=== PATIENT | male | born 1930 | race Caucasian/White ===

== ENCOUNTER 2017-03-04 01:38 | Emergency (ER) | payer MEDICARE ==
[2017-03-04] MEDS ORDERED: LIDOCAINE HCL 2% URO-JET 5 ML JEL.PF.APP MUCOUS MEM ONE (02:10)
--- NOTE | 2017-03-04 02:48 | ER PHYSICIAN DOCUMENTATION ---
Physician Documentation [facility] Name:Al Horton Age:87 yrs Sex:Male :1930 Arrival Date:03/04/2017 Time:01:38 Bed4 Private MD:Ky Clark; Missy Torres ED, Tom Disposition: 03/04 02:25 Chart complete. tl1 Disposition: 03/04/17 02:03 Discharged to Home/Self Care. Impression: Urinary Retention. - Condition is Good. - Discharge Instructions: URINARY RETENTION, Male. - Medical Reconciliation form form. - Follow up: Private Physician; When: 4- 6 days; Reason: Recheck today's complaints, Continuance of care. - Problem is new. - Symptoms have improved. - Notes: CALL FIRST THING MONDAY TO MAKE AN APPOINTMENT WITH YOUR UROLOGIST, DR DAVIES IN [place] FOR SOMETIME EARLY NEXT WEEK. HPI: 01:40 This 87 yrs old Male presents to ER with complaints of Urinary Retention. tl1 01:40 The patient presents with urinary symptoms, retention. Onset: The symptom(s)/episode tl1 began/occurred gradually, 9 hour(s) ago. Severity of symptoms: At their worst the symptoms were moderate, in the emergency department the symptoms are unchanged. The patient has experienced similar episodes in the past, several times. The patient has been recently seen by a physician: Hospitalized for 2 days at [facility] FOR pneumonia and d/c'd to home yesterday. He was OK today, but this evening felt the urge to urinate several times but was unable to. Over the last hour or so he has had progressive suprapubic distension and discomfort as well as a small amount of urinary incontinence. Has had some diarrhea since being on the antibiotics, but no constipation and no fecal incontinence or difficulty having a BM.. . Denies f/c/s or UTI symptoms. No back or flank pain.. Historical: - Allergies: PENICILLINS; SHELLFISH; Levaquin; - Home Meds: 1. Tylenol 325 mg Oral Tab 2 tabs every 6 hours as needed 2. Iron CR Oral 3. tamsulosin 0.4 mg Oral Cp24 1 cap once daily 1/2 hour following the same meal each day 4. aspirin 325 mg Oral Tab 1 tab once daily 5. Diovan 160 mg Oral Tab 1 tab once daily 6. omperazole 7. Lasix 20 mg Oral Tab 1 tab once daily 8. amlodipine 2.5 mg Oral Tab 1 tab once daily 9. pravastatin 40 mg Oral Tab 1 tab once daily - PMHx: renal insuffen; HYPERTENSION; COPD; COPD Exacerbation (February 04, 2014); - Ebola Screening: : Patient negative for fever greater than or equal to 101.5 degrees Fahrenheit, and additional compatible Ebola Virus Disease symptoms. Patient denies exposure to infectious person. Patient denies travel to an Ebola-affected area in the 21 days before illness onset. No symptoms or risks identified at this time. . - Immunization history: Pneumococcal vaccine is up to date, Flu Vaccine < 1 year. - Social history: Smoking status: unknown if patient ever smoked tobacco. Patient/guardian denies using alcohol, street drugs, IV drugs, marijuana. ROS: 01:54 : Positive for difficulty urinating. tl1 01:54 All other systems are negative. Exam: 01:57 Constitutional: This is a well developed, well nourished patient who is awake, alert, tl1 and in no acute distress. Head/Face: Normocephalic, atraumatic. Cardiovascular: Regular rate and rhythm with a normal S1 and S2. No gallops, murmurs, or rubs. Normal PMI, no JVD. No pulse deficits. 01:57 Respiratory: Lungs have equal breath sounds bilaterally, clear to auscultation and tl1 percussion. No rales, rhonchi or wheezes noted. No increased work of breathing, no retractions or nasal flaring. 01:57 Abdomen/GI: Inspection: distension, that is moderate, in the suprapubic area. 01:57 : CVA tenderness, is absent, Bladder: distension, that is moderate, tenderness, that is moderate. 01:57 Skin: Exam negative for acute changes, rash. 01:57 Neuro: Exam negative for acute changes. Vital Signs: 01:54 BP 131 / 75; Pulse 85; Resp 18; Temp 97.9(O); Pulse Ox 91% on R/A; sc1 Procedures: 02:01 Tompkins catheter by JAY Contreras. tl1 MDM: 01:49 Patient medically screened. tl1 01:57 Med List attached sc1 02:21 Differential diagnosis: urinary retention. Data reviewed: vital signs, nurses notes, tl1 lab test result(s), urinalysis, Dip negative., and as a result, I will discharge patient. Test interpretation: by ED physician or midlevel provider:. Counseling: I had a detailed discussion with the patient and/or guardian regarding: the historical points, exam findings, and any diagnostic results supporting the discharge/admit diagnosis, lab results, the need for outpatient follow up, a urologist. Response to treatment: the patient's symptoms have markedly improved after treatment, and as a result, I will discharge patient. ED course: Tompkins catheter placed without difficulty. 1875 ml of dark urine drained initially with resolution of his suprapubic distension and discomfort.. 02:27 Patient medically screened. tl1 Dispensed Medications: 02:20 Drug: Urojet - Lidocaine Viscous Gel 2 % 1 application; Route: Mucous Membrane; sc1 Point of Care Testing: Urine Dip: 02:18 pH: 5.0; ; Specific [place]: 1.010; Ketones: Negative; Glucose: Negative; Protein: sc1 Negative; Leukocytes: Negative; Nitrite: Negative ; Blood: Negative; Bilirubin: Negative ; Urobilinogen: Normal Signatures: Diane Lara RN RN sc1 Minh Puente MD MD tl1
--- NOTE | 2017-03-04 02:48 | ER NURSING DOCUMENTATION ---
Nurse's Notes [facility] Name:Al Horton Age:87 yrs Sex:Male :1930 Arrival Date:03/04/2017 Time:01:38 Bed4 Private MD:Ky Clark; Missy Torres Diagnosis:Urinary Retention Presentation: 03/04 01:48 Presenting complaint: Patient states: Pt. states he is having trouble urinating. sc1 Transition of care: Home. Notified ED Physician of patient's arrival and CC Dr. Puente notified. Care prior to arrival: IV initiated. gauge and site 20 left AC IV Fluids given by EMS NS 1000 ml. 01:48 Acuity: SHER 3 sc1 01:48 Method Of Arrival: EMS: 400 sc1 Triage Assessment: 01:53 General: Appears in no apparent distress, comfortable, well developed, well nourished, sc1 well groomed, Behavior is cooperative, pleasant. Pain: Complains of pain in suprapubic area Quality of pain is described as dull. Historical: - Allergies: PENICILLINS; SHELLFISH; Levaquin; - Home Meds: 1. Tylenol 325 mg Oral Tab 2 tabs every 6 hours as needed 2. Iron CR Oral 3. tamsulosin 0.4 mg Oral Cp24 1 cap once daily 1/2 hour following the same meal each day 4. aspirin 325 mg Oral Tab 1 tab once daily 5. Diovan 160 mg Oral Tab 1 tab once daily 6. omperazole 7. Lasix 20 mg Oral Tab 1 tab once daily 8. amlodipine 2.5 mg Oral Tab 1 tab once daily 9. pravastatin 40 mg Oral Tab 1 tab once daily - PMHx: renal insuffen; HYPERTENSION; COPD; COPD Exacerbation (February 04, 2014); - Ebola Screening: : Patient negative for fever greater than or equal to 101.5 degrees Fahrenheit, and additional compatible Ebola Virus Disease symptoms. Patient denies exposure to infectious person. Patient denies travel to an Ebola-affected area in the 21 days before illness onset. No symptoms or risks identified at this time. . - Immunization history: Pneumococcal vaccine is up to date, Flu Vaccine < 1 year. - Social history: Smoking status: unknown if patient ever smoked tobacco. Patient/guardian denies using alcohol, street drugs, IV drugs, marijuana. Screenin:55 Infectious Disease Risk None. Abuse screen: Denies threats or abuse. Nutritional in1 screening: No deficits noted. Vital Signs: 01:54 BP 131 / 75; Pulse 85; Resp 18; Temp 97.9(O); Pulse Ox 91% on R/A; in1 ED Course: 01:39 Patient arrived in ED. ma1 01:39 Missy Torres DO is Private Physician. ma1 01:39 Ky Clark DO is Private Physician. ut1 01:48 Diane Lara, JAY is Primary Nurse. sc1 01:49 Minh Puente MD is Attending Physician. 1 01:50 Triage completed. in1 01:55 Notified ED Physician of patient's arrival and chief complaint. Dr. Puetne notified. in1 Allergy Band Placed Arm band placed on Bed in low position Call Light in Reach HOB Elevated Side rails up x2. 01:57 Med List attached [facility] 02:19 Eric cath inserted 16 Fr. returned bren urine. Patient tolerated well. [facility] 02:20 Eric catheter bag changed to a leg bag for discharge home. in1 02:47 Valuables Remains with patient. in1 Administered Medications: 02:20 Drug: Urojet - Lidocaine Viscous Gel 2 % 1 application; Route: Mucous Membrane; [facility] Point of Care Testing: Urine Dip: 02:18 pH: 5.0; ; Specific [place]: 1.010; Ketones: Negative; Glucose: Negative; Protein: sc1 Negative; Leukocytes: Negative; Nitrite: Negative ; Blood: Negative; Bilirubin: Negative ; Urobilinogen: Normal Output: 02:21 Urine: 1875ml (Eric); Total: 1875ml. [facility] Outcome: 02:03 Discharge ordered by . 1 02:46 Discharged to home via wheelchair. in1 02:46 Condition: stable 02:46 Discharge instructions given to patient, family, Instructed on discharge instructions, follow up and referral plans. Eric care. Demonstrated understanding of instructions. 02:47 Patient left the ED. [facility] [id number] 12:40 Discharge F/U Call: Spoke with: patient. Are you having any pain? no. Have you made a lc f/u appointment? yes Overall Care on a scale of 1-10 with 10 being the best care, you rate our care as: Other comments: ERIC DRAINING WELL, NO QUESTIONS Signatures: Yue Lopez, JAY RN lc Diane Lara RN RN sc1 Minh Puente MD MD tl1 Ijeoma Small ut1
== END 2017-03-04 02:48 | disposition home or self-care (01) ==
LOC: ER 01:38
DX: R33.9 Retention of urine, unspecified (principal); N32.89 Other specified disorders of bladder; R10.30 Lower abdominal pain, unspecified; Z46.6 Encounter for fitting and adjustment of urinary device; R19.7 Diarrhea, unspecified; I10 Essential (primary) hypertension; J44.9 Chronic obstructive pulmonary disease, unspecified; Z79.82 Long term (current) use of aspirin; Z79.899 Other long term (current) drug therapy; Z74.3 Need for continuous supervision
CPT/HCPCS: 51702; 99284

== ENCOUNTER 2017-04-26 13:04 | Inpatient (IN) | payer MEDICARE ==
[2017-04-26] MEDS ORDERED: METHYLPREDNISOLONE SOD 125 MG/2 ML VIAL ONE (13:30)
[2017-04-26] MEDS ORDERED: IPRATROPIUM/ALBUTEROL 0.5/3 MG 3 ML AMPUL.NEB INHALATION ONE (13:30)
[2017-04-26 13:31] LABS: BASOPHIL# 0.1 X 10^3uL (0.0-0.1); BASOPHILS 1.2 % (0.0-2.0); EOSINOPHILS 8.6 % (0.0-6.0); EOSINOPHILS# 0.8 X 10^3uL (0.0-0.4); HEMATOCRIT 29.7 % (42.0-54.0); HEMOGLOBIN 9.9 g/dL (14.0-18.0); LYMPHOCYTES 11.8 % (20.0-40.0); LYMPHOCYTES# 1.1 X 10^3uL (0.8-3.8); MEAN CELL VOLUME 88.5 fL (80.0-100.0); MEAN CORPUS. HGB CONCENTRATION 33.2 g/dL (32.0-36.0); MEAN CORPUSCULAR HEMOGLOBIN 29.4 pg (29.0-35.0); MEAN PLATELET VOLUME 9.5 fL (7.4-10.4); MONOCYTES 10.8 % (2.0-10.0); NEUTROPHILS 67.6 % (54.0-75.0); NEUTROPHILS# 6.3 X 10^3uL (2.6-6.7); PLATELET COUNT 219 X 10^3uL (130-440); RED BLOOD COUNT 3.36 X 10^6uL (4.20-6.10); RED CELL DISTRIBUTION WIDTH 13.3 % (11.5-14.5); WHITE BLOOD COUNT 9.3 X 10^3uL (3.9-10.7)
[2017-04-26 13:39] LABS: BLOOD UREA NITROGEN 41 mg/dL (9-20); CALCIUM 9.2 mg/dL (8.4-10.2); CHLORIDE 104 mmol/L (98-107); GLUCOSE 110 mg/dL (70-100); MAGNESIUM 1.8 mg/dL (1.6-2.3); POTASSIUM 3.6 mmol/L (3.5-5.1); SODIUM 143 mmol/L (137-145)
[2017-04-26 13:55] LABS: TROPONIN I 0.054 ng/mL (0.00-0.034)
[2017-04-26] MEDS ORDERED: LEVALBUTEROL 1.25 MG/3 ML VIAL.NEB INHALATION ONE (14:23)
[2017-04-26] MEDS ORDERED: HOME MEDICATION LIST NEEDED 1 EA EACH MC ONE (14:33)
[2017-04-26] MEDS ORDERED: MORPHINE SULFATE 4 MG/ML SYR IV PRN (14:42)
[2017-04-26] MEDS ORDERED: O2 HUMIDIFIER 650 ML BOTTLE INHALATION ONE (15:11)
--- NOTE | 2017-04-26 15:30 | ER NURSING DOCUMENTATION ---
Nurse's Notes [facility] Name:Al Horton Age:87 yrs Sex:Male :1930 Arrival Date:04/26/2017 Time:13:04 Bed4 Private MD:Missy Torres Diagnosis:COPD Exacerbation;Hypoxia;Gout Presentation: 04/26 13:10 Acuity: SHER 2 13:22 Presenting complaint: Patient states: Pt was seen in the clinic for an appt today, Dr. darrell Lehman noticed the patient was having labored breathing and chest tightness. Pt sent up from EP. Transition of care: EP. 13:22 Method Of Arrival: Wheelchair Triage Assessment: 13:23 General: Appears in no apparent distress, Behavior is cooperative. Pain: Denies pain. rh EENT: Oral mucosa is dry. Neuro: Level of Consciousness is awake, alert, obeys commands, Oriented to person, place, time, event. Cardiovascular: Capillary refill < 3 seconds Reports shortness of breath Chest Tightness. Respiratory: Airway is patent Respiratory effort is even, labored, Breath sounds are diminished Reports shortness of breath Onset: The symptoms/episode began/occurred gradually, the patient has moderate shortness of breath. GI: Abdomen is non- distended Denies diarrhea, nausea, vomiting. : Derm: Skin is intact, is healthy with good turgor, Skin is pink, warm & dry. Musculoskeletal: Circulation, motion, and sensation intact Range of motion intact in all extremities. Historical: - Allergies: PENICILLINS; SHELLFISH; Levaquin; - Home Meds: 1. Janumet 50-500 mg oral tab 1 tab 2 times per day 2. omeprazole 20 mg oral cpDR 2 caps once daily 3. hydrochlorothiazide 25 mg oral tab 1 tab once daily 4. pravastatin 40 mg oral tab 1 tab once daily 5. lisinopril 40 mg oral tab 1 tab once daily 6. aspirin 81 mg oral tab 1 tab once daily 7. fluticasone Propionate 50MCG 8. Proventil Inhl 9. Omeprazole Oral 10. Acetaminophen Oral 11. Trazodone Oral 12. pantoprazole oral 13. tamsulosin oral 14. proair 15. Flovent Inhl 16. Lasix Oral 17. pravastatin oral - PMHx: COPD; COPD Exacerbation (February 04, 2014); HYPERTENSION; renal insufficiency; Urinary Retention (March 04, 2017); GERD; BPH; hyperkalemia; HIGH CHOLESTEROL; ANEMIA; ATRIAL FIB; CHF; GOUT; edema; - PSHx: Cholecysectomy; Appendectomy; HERNIA REPAIR; - Tetanus: < 10 years. - Ebola Screening: : Patient negative for fever greater than or equal to 101.5 degrees Fahrenheit, and additional compatible Ebola Virus Disease symptoms. - Social history: Smoking status: Patient states former smoker of tobacco. Smoking status: Patient states former smoker of tobacco. - Immunization history: Pneumococcal vaccine is up to date, Flu Vaccine unknown. Screenin:28 Infectious Disease Risk None. Abuse screen: Denies threats or abuse. Denies injuries rh from another. Nutritional screening: No deficits noted. Assessment: 13:28 See Triage Assessment done by same RN. rh 13:42 Reassessment: Pt's two daughters arrived and are in the room. . rh Vital Signs: 13:20 BP 121 / 61; Pulse 102; Resp 22; Temp 99.1(O); Pulse Ox 85% on R/A; Pain 0/10; rh 13:59 BP 140 / 81; Pulse 110; Resp 22; Pulse Ox 90% on 3.5 lpm NC; rh 14:32 Pulse 109; Resp 10; Pulse Ox 93% on 3 lpm NC; kr 15:29 BP 145 / 61; Pulse 99; Resp 20; Pulse Ox 92% on 3 lpm NC; rh ED Course: 13:08 Patient arrived in ED. jl 13:08 Missy Torres DO is Private Physician. jl 13:10 Triage completed. rh 13:10 Oxygen Oxygen administration via nasal cannula @ 3L/min. rh 13:11 Malvin Paul MD is Attending Physician. jm 13:12 EKG done. (by ED staff). Reviewed by Malvin Paul MD. tg 13:20 Inserted peripheral IV: 18 gauge saline lock: in right antecubital area and blood nf collected. 13:20 monitoring engineer on. Pulse ox on. NIBP on. rh 13:27 Notified ED Physician of patient's arrival and chief complaint. Dr. Paul notified. rh 13:28 Valuables Remains with patient Patient has correct armband on for positive rh identification. Placed in gown. Bed in low position. Call light in reach. Side rails up X 1. 13:33 Hofsess, Janny is Primary Nurse. rh 13:[address] Palu of Troponin of 0.054. Dr. Paul will consult Dr. Lehman. lpr 14:22 Subsequent Med Neb Given as ordered Patient tolerated procedure well without adverse kr effect. 14:47 Sanjana Lehman MD is Admitting Physician. 15:27 EKG attached tg Administered Medications: 13:30 Drug: Solu-MEDROL 125 mg; Route: IVP; Site: right antecubital; rh 13:43 Follow up: Response: Wheezing diminished rh 13:30 Drug: DuoNeb (Albuterol 2.5 mg, Atrovent 0.5 mg); 3 ml; Route: Nebulizer; rh 15:30 Follow up: Response: Wheezing diminished rh 14:15 Drug: Xopenex 1.25 mg; Route: Inhalation; kr 14:32 Follow up: Pulse 109 bpm; Resp 10 bpm; Pulse Ox 93% 3 lpm Nasal Cannula kr Outcome: 14:47 Decision to Admit by Provider. 15:29 Admitted to Med/surg accompanied by nurse, family with patient, via stretcher, with oxygen, with chart. 15:29 Condition: stable 15:29 Discharge Assessment: Patient awake, alert and oriented x 3. No cognitive and/or functional deficits noted. Patient verbalized understanding of disposition instructions. 15:29 Discharge instructions given to patient, family, Instructed on need to admit 15:30 Patient left the ED. Signatures: Justin Shaffer RN RN Tati Chou RN RN nf Meyer, John, MD MD jm Roberts, Leslie, RN RN lpr Hofsess, Rachel Mare Montague Jeff jl
--- NOTE | 2017-04-26 15:31 | ER PHYSICIAN DOCUMENTATION ---
Physician Documentation [facility] Name:Al Horton Age:87 yrs Sex:Male :1930 Arrival Date:04/26/2017 Time:13:04 Bed4 Private MD:Missy Torres ED, John Disposition: 04/26/17 14:47 Admit ordered for Sanjana Lehman. Preliminary diagnosis are COPD Exacerbation, Hypoxia, Gout. - Bed requested for Medical/Surgical. - Condition is Good. - Problem is new. - Symptoms have improved. 23 HR OBS Yes HPI: 04/26 14:17 This 87 yrs old Male presents to ER via Wheelchair with complaints of jm Shortness Of Breath. 14:17 The patient has shortness of breath at rest. Onset: The symptom(s)/episode jm began/occurred yesterday, and became worse today. Duration: The symptoms are continuous. The patient's shortness of breath is aggravated by nothing. Associated signs and symptoms: Pertinent negatives: chest pain, non-productive cough, diaphoresis, nausea. Severity of symptoms: in the emergency department the symptoms are unchanged. The patient has not experienced similar symptoms in the past. The patient has not recently seen a physician. 87 yo M who was being seen by Dr. Lehman for gout and was in the upper 70's on RA, so pt was refereed to the ER for w/u. Pt w hx of COPD. . Historical: - Allergies: PENICILLINS; SHELLFISH; Levaquin; - Home Meds: 1. Janumet 50-500 mg oral tab 1 tab 2 times per day 2. omeprazole 20 mg oral cpDR 2 caps once daily 3. hydrochlorothiazide 25 mg oral tab 1 tab once daily 4. pravastatin 40 mg oral tab 1 tab once daily 5. lisinopril 40 mg oral tab 1 tab once daily 6. aspirin 81 mg oral tab 1 tab once daily 7. fluticasone Propionate 50MCG 8. Proventil Inhl 9. Omeprazole Oral 10. Acetaminophen Oral 11. Trazodone Oral 12. pantoprazole oral 13. tamsulosin oral 14. proair 15. Flovent Inhl 16. Lasix Oral 17. pravastatin oral - PMHx: COPD; COPD Exacerbation (February 04, 2014); HYPERTENSION; renal insufficiency; Urinary Retention (March 04, 2017); GERD; BPH; hyperkalemia; HIGH CHOLESTEROL; ANEMIA; ATRIAL FIB; CHF; GOUT; edema; - PSHx: Cholecysectomy; Appendectomy; HERNIA REPAIR; - Tetanus: < 10 years. - Ebola Screening: : Patient negative for fever greater than or equal to 101.5 degrees Fahrenheit, and additional compatible Ebola Virus Disease symptoms. - Social history: Smoking status: Patient states former smoker of tobacco. Smoking status: Patient states former smoker of tobacco. - Immunization history: Pneumococcal vaccine is up to date, Flu Vaccine unknown. ROS: 14:19 Constitutional: Negative for fatigue, fever. jm 14:19 ENT: Negative for rhinorrhea, sinus congestion, sinus pain, sore throat. 14:19 Neck: Negative for swelling, tenderness. 14:19 Cardiovascular: Positive for edema, Negative for chest pain. 14:19 Respiratory: Positive for dyspnea on exertion, shortness of breath. 14:19 Abdomen/GI: Negative for abdominal pain, nausea, vomiting. 14:19 MS/extremity: Positive for rash, swelling, tenderness, warmth. 14:19 All other systems are negative. Exam: 14:19 Constitutional: The patient appears alert, awake. jm 14:19 Eyes: Periorbital structures: appear normal, Extraocular movements: intact throughout. 14:19 ENT: Mouth: is normal, Voice: is normal. 14:19 Cardiovascular: Rate: tachycardic, Rhythm: irregularly irregular. 14:19 Respiratory: the patient does not display signs of respiratory distress, Respirations: normal, Breath sounds: wheezing, that is mild, is scattered, decreased breath sounds, that are severe, are scattered. 14:19 Abdomen/GI: Bowel sounds: normal, Palpation: abdomen is soft and non-tender. 14:19 Musculoskeletal/extremity: Pulses: are normal with no appreciated deficits, Sensation intact. 14:19 Skin: rash a moderate rash is noted, gout like rash on L foot. . 14:19 Neuro: Mentation: is normal, Memory: is normal. 14:19 Psych: Behavior/mood is pleasant, cooperative, Affect is calm. Vital Signs: 13:20 BP 121 / 61; Pulse 102; Resp 22; Temp 99.1(O); Pulse Ox 85% on R/A; Pain 0/10; rh 13:59 BP 140 / 81; Pulse 110; Resp 22; Pulse Ox 90% on 3.5 lpm NC; rh 14:32 Pulse 109; Resp 10; Pulse Ox 93% on 3 lpm NC; kr 15:29 BP 145 / 61; Pulse 99; Resp 20; Pulse Ox 92% on 3 lpm NC; rh MDM: 13:11 Patient medically screened. jm 14:22 Differential diagnosis: Anemia Chronic Obstructive Pulmonary Disease. Antibiotic jm administration: Data reviewed: vital signs, nurses notes, old medical records, lab test result(s), EKG, radiologic studies, and as a result, I will admit patient. Data interpreted: Pulse oximetry: Interpretation: hypoxia. Test interpretation: by ED physician or midlevel provider: plain radiologic studies, ECG. Counseling: I had a detailed discussion with the patient and/or guardian regarding: the historical points, exam findings, and any diagnostic results supporting the discharge/admit diagnosis, lab results, radiology results, the need for further work-up and treatment in the hospital. ECG:. Medication response: The patient's symptoms have improved, Physician consultation: Sanjana Lehman MD regarding admission, and will see patient immediately, later today. 14:44 ED course: Pt here for SOB, found to have COPD exacerbation. Pt will need admission for jm this. Pt opened up a bit w albuterol, but will need continued treatment. . 15:27 EKG attached tg 04/26 13:39 Order name: CBC AUTO DIF, MDIF/RMOR IF IND [facility] 04/26 13:56 Order name: BASIC METABOLIC PANEL [facility] 04/26 13:56 Order name: MAGNESIUM [facility] 04/26 13:56 Order name: BNP,NT-PRO [facility] 04/26 13:56 Order name: TROPONIN I [facility] 04/26 17:36 Order name: TROPONIN I [facility] 04/26 21:14 Order name: HEPATIC PANEL [facility] 04/27 06:36 Order name: CBC AUTO DIF, MDIF/RMOR IF IND [facility] 04/27 06:46 Order name: BASIC METABOLIC PANEL [facility] 04/27 06:46 Order name: BNP,NT-PRO [facility] 04/27 09:28 Order name: IRON PANEL [facility] 04/27 09:28 Order name: FERRITIN [facility] 04/26 18:46 Order name: CHEST; [place] [id number] [facility] 04/26 13:11 Order name: 12-lead EKG; Complete Time: 13:22 rh 04/26 13:11 Order name: Iv Saline Lock; Complete Time: rh 04/26 13:11 Order name: Place Patient On Monitor; Complete Time: rh 04/26 13:11 Order name: Pulse Ox Continuous; Complete Time: rh 04/26 13:29 Order name: Oxygen; Complete Time: : rh EC: Rhythm is irregularly irregular, A fib. QT interval is normal. No Q waves. T waves are jm Normal. No ST changes noted. Dispensed Medications: 13:30 Drug: Solu-MEDROL 125 mg; Route: IVP; Site: right antecubital; rh 13:43 Follow up: Response: Wheezing diminished rh 13:30 Drug: DuoNeb (Albuterol 2.5 mg, Atrovent 0.5 mg); 3 ml; Route: Nebulizer; rh 15:30 Follow up: Response: Wheezing diminished rh 14:15 Drug: Xopenex 1.25 mg; Route: Inhalation; kr 14:32 Follow up: Pulse 109 bpm; Resp 10 bpm; Pulse Ox 93% 3 lpm Nasal Cannula kr Signatures: Justin Shaffer RN RN tg Meyer, John, MD MD jm Roberts, Leslie, RN RN lpr Hofsess, Rachel Mare Montague
[2017-04-26] MEDS ORDERED: AZITHROMYCIN 500 MG in NORMAL SALINE 250 ML IV SCH (16:00)
[2017-04-26] MEDS: LEVALBUTEROL 1.25 MG/3 ML VIAL.NEB INHALATION SCH ×2 (16:30→21:14)
--- NOTE | 2017-04-26 18:11 | RADIOLOGY REPORT ---
A limited single portable view of the chest is compared with prior examination dated 03/28/2017. The heart and vessels are stable. Stable bibasilar scarring is noted. No other change is identified. IMPRESSION: Stable bibasilar scarring. MTDD
[2017-04-26] MEDS ORDERED: HYDROCORTISONE 100 MG/2 ML VIAL IV SCH (20:00)
[2017-04-26 21:11] LABS: ALBUMIN 3.9 g/dL (3.5-5.0); ALKALINE PHOSPHATASE 79 U/L (38-126); ALT 36 U/L (21-72); AST 26 U/L (17-59); BILIRUBIN, DIRECT 0.4 mg/dL (0.0-0.4); BILIRUBIN, TOTAL 0.9 mg/dL (0.2-1.3)
[2017-04-26] MEDS: METHYLPREDNISOLONE SOD 125 MG/2 ML VIAL IV SCH (21:14)
[2017-04-26] MEDS ORDERED: ACETAMINOPHEN 325 MG TABLET PO PRN (22:31)
[2017-04-26] MEDS ORDERED: traZODone HCL 50 MG TABLET PO PRN (22:31)
[2017-04-26] MEDS ORDERED: traMADol HCL 50 MG TABLET PO PRN (22:31)
[2017-04-27] MEDS: METHYLPREDNISOLONE SOD 125 MG/2 ML VIAL IV SCH (06:06)
[2017-04-27 06:12] LABS: BASOPHILS 0.3 % (0.0-2.0); EOSINOPHILS 0.1 % (0.0-6.0); HEMATOCRIT 29.8 % (42.0-54.0); LYMPHOCYTES 12.3 % (20.0-40.0); LYMPHOCYTES# 0.8 X 10^3uL (0.8-3.8); MEAN CELL VOLUME 90.2 fL (80.0-100.0); MEAN CORPUS. HGB CONCENTRATION 32.5 g/dL (32.0-36.0); MEAN CORPUSCULAR HEMOGLOBIN 29.3 pg (29.0-35.0); MEAN PLATELET VOLUME 10.4 fL (7.4-10.4); MONOCYTES 2.3 % (2.0-10.0); MONOCYTES# 0.2 X 10^3uL (0.2-1.0); NEUTROPHILS# 5.6 X 10^3uL (2.6-6.7); PLATELET COUNT 188 X 10^3uL (130-440); RED BLOOD COUNT 3.31 X 10^6uL (4.20-6.10); RED CELL DISTRIBUTION WIDTH 13.3 % (11.5-14.5); WHITE BLOOD COUNT 6.6 X 10^3uL (3.9-10.7)
[2017-04-27 06:13] LABS: BLOOD UREA NITROGEN 43 mg/dL (9-20); CALCIUM 8.8 mg/dL (8.4-10.2); CHLORIDE 105 mmol/L (98-107); POTASSIUM 3.5 mmol/L (3.5-5.1); SODIUM 140 mmol/L (137-145)
[2017-04-27 06:36] LABS: HEMOGLOBIN 9.7 g/dL (14.0-18.0)
[2017-04-27 06:45] LABS: GLUCOSE 237 mg/dL (70-100)
--- NOTE | 2017-04-27 08:06 | HISTORY & PHYSICAL ---
History of Present Illness (Sanjana Lehman MD; 04/26/2017 8:35 PM) Patient words: Left great toe pain; SOB. The patient is a 87 year old male who presents for shortness of breath. He has an underlying history of COPD and is a former smoker who came to the office with complaints of left foot pain, swelling, redness, warmth, and inability to walk. He was found to be 79% on room air. He states that he awoke this morning feeling short of breath. He slept 2 hours longer than usual this morning due to fatigue. He states that he has had a cough which is mostly nonproductive and he has some occasional clear phlegm. No chest pain or chest tightness. He has had some wheezing, but no fevers, chills, or sweat. No rhinorrhea. He is having some postnasal drainage. No sore throat, no ear pain. No abdominal pain. No nausea or vomiting. He has chronic constipation and diarrhea. Tompkins catheter was placed 2 months ago for a renal mass. He states that here on the floor, his breathing is better now after nebulizers and IV steroids. His left foot gout is also better after the IV steroids. 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 Cough (R05) Recent complicated history with left lower lobe community-acquired pneumonia with sepsis and hospitalization at [facility]. Hypoxia (R09.02) Nocturnal hypoxia by nocturnal oximetry in 03/2017. 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 Treadwell Hemorrhoids, internal (K64.8) Screening for depression (Z13.89) Sciatica, unspecified laterality (M54.30) Pruritus (L29.9) Hyperkalemia (E87.5) Chronic gastrointestinal bleeding (K92.2) s/p EGD/Cscope/VCE with Occult source Hypertrophy of prostate without urinary obstruction (N40.0) Allergies (Rosalina Hansen MA; 04/26/2017 11:37 AM) Quinolones (Cipro, Levaquin) altered mental status Jxlobnhis74/23/2015 Pruritus, Swelling. Penicillins (Amoxicillin, Augmentin, Unasyn...)07/22/2015 Rash, Swelling. Family History (Rosalina Hansen MA; 04/26/2017 11:37 AM) Brother [place] Mother hypertension, stomach cancer Social History (Rosalina Hansen MA; 04/26/2017 11:37 AM) No drug use Alcohol use Occasional alcohol use. approx 1 serving approx 3 times weekly PHI Release Details ROBERTO HAIRSTON (DAUGHTER), SHERLYN WILLIS (DAUGHTER), HERBERT TRONCOSO (DAUGHTER), ANJEL HAIRSTON (SON), SHALINI BetsyYOUNG (DAUGHTER) Code Status Code Status: DNR. Durable Power of Medical Diagnostic Radiographer Sherlyn Willis (Daughter)- [phone] Tobacco use Former smoker, Age quit smoking. 63 years old Medication History (Rosalina Hansen MA; 04/26/2017 11:37 AM) Pravastatin Sodium (10MG Tablet, 1 Oral daily, Taken starting 01/18/2017) Active. Furosemide (40MG Tablet, 1 Oral daily, Taken starting 04/14/2017) Active. Flovent HFA (44MCG/ACT Aerosol, 1 (one) Inhalation 2 puffs twice daily, Taken starting 04/11/2017) Active. ProAir HFA (108 (90 Base)MCG/ACT Aerosol Soln, 1 (one) Inhalation 1-2 puffs inhaled every 4 hours as needed shortness of breath, Taken starting 04/11/2017) Active. Tamsulosin HCl (0.4MG Capsule, 1 Oral daily, Taken starting 01/18/2017) Active. TraMADol HCl (50MG Tablet, 1 (one) Oral 1 po tid prn severe pain, Taken starting 02/21/2017) Active. Pantoprazole Sodium (20MG Tablet DR, 1 (one) Tablet DR Oral 1 po bid x 2 weeks , then 1 po daily, Taken starting 04/14/2017) Active. (may substitute any ppi on formulary) TraZODone HCl (50MG Tablet, 1 (one) Tablet Oral 1/2-1 po qhs sleep, Taken starting 04/14/2017) Active. O-2 Suspensory (1 (one) Misc 2L NC oxygen nocturnal use, Taken starting 2016) Active. (Dx: Copd j44.9, CHF I50.0, hypoxia R09.02; nocturnal pulse oximetry with average 78% off oxygen; 2l NC with humidified oxygen/concentrate; needs tubing etc.) Multivitamin Adult (1 tab Oral daily) Active. Colace (100MG Capsule, 1 cap Oral daily) Active. Iron (325 (65 Fe)MG Tablet, 1 Oral daily) Active. Tylenol PM Extra Strength (500-25MG Tablet, 2 Oral nightly) Active. Ocuvite (Oral) Active. Probiotic Daily (Oral) Active. Acetaminophen (650MG Tablet, 2 Oral as needed) Active. (up to three times daily ) Omeprazole (20MG Tablet DR, 1 Oral daily) Active. (Prilosec over the counter) Medications Reconciled Past Surgical History (Sanjana Lehman MD; 04/26/2017 8:19 PM) Hernia Repair Right. Inguinal, late Shoulder [id number] Left. Replacement Eye [id number] Dr. Carroll Carotid Artery Surgery - [id number] Diagnostic Studies History (Sanjana Lehman MD; 04/26/2017 8:19 PM) Lngalmbitvulyo10/2014 EF 60%, grade II diastolic dysfunction, moderate elevated pulmonary pressures ERCP01/2015 Nocturnal Tladmqiv93/2017 Abnormal. Room air. Review of Systems (Sanjana Lehman MD; 04/26/2017 8:38 PM) He awoke with left foot pain yesterday and he states that even the movement of his left foot under the sheets was exquisitely painful. He has had prior history of gout which he believes was on the opposite RIGHT foot. No headaches. 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 He is right-handed and had a right trigger finger of his right ring finger with some stinging and burning. This finger is currently locked in a flexed position. DATA: Chest x-ray shows stable bibasilar scarring. CBC shows white blood cell count 9.3, hemoglobin 9.9, hematocrit 29.7, platelets 219. CBC done 03/28/2017 shows hemoglobin 10.2 and hematocrit 30.8. BMI 41, creatinine 1.7. 04/13/17: 1138 creatinine 1.6. BNP 10,300 and previously 5870. EKG: Atrial fibrillation rate of 110. No acute changes. Vitals (Rosalina Hansen MA; 04/26/2017 11:57 AM) 04/26/2017 11:56 AM Pulse: 103 (Regular) P.OX: 93% (1L O2) 04/26/2017 11:40 AM Weight: 179.19 lb Weight Measurement Declined Temp.: 97.8F(Temporal) Pulse: 103 (Regular) Resp.: 20 (Unlabored) P.OX: 79% (Room air) BP: 127/69 (Sitting, Left Arm, Standard) Physical Exam (Sanjana Lehman MD; 04/26/2017 8:27 PM) The physical exam findings are as follows: Note:General: He is sitting at 90 in the hospital bed with some audible wheezing. He is asleep. He is awakened with gentle hand movement. No respiratory distress. Appears chronically ill. HEENT: His pupils are equal, round, and reactive to light. Extraocular movements intact. Yellow, crusty drainage which he states is secondary to his eyedrops. Nares are boggy and congested with clear rhinorrhea. TMs are partially obscured by cerumen, but appear clear. Mucous membranes are mildly dry but intact. Oropharynx is clear. Neck: Supple, no meningismus, no carotid bruits, no jugular venous distention, no lymphadenopathy. Lungs: In the office, he had audible wheezing which is now decreased. He initially had very poor air movement with diffuse end expiratory wheezes. Now, he has improved aeration throughout. He has diffuse rhonchi posteriorly. No rales appreciated. Heart: Tachycardic, regular rhythm with frequent ectopy. Abdomen: Soft, mildly distended, nontender, good bowel sounds, no masses or hepatosplenomegaly. Extremities: Chronic venous stasis changes bilaterally. Atrophy, pigmentation, senile purpura. 1+ pedal and pretibial edema on the right. Trace to 1+ pedal edema on the left. Left foot and leg was warm, erythematous, and exquisitely tender in the office but is much less tender now. Neurology: Awake and alert 3. Cranial nerves II through XII are grossly intact without focal deficits. Motor, sensation, and DTRs are intact. He was unable to walk in the office secondary to left foot pain. Assessment & Plan (Sanjana Lehman MD; 04/26/2017 8:46 PM) COPD exacerbation (J44.1) Impression: He presented to the office and was 79% room air. After receiving nebulizers and IV steroids, he is 91% on 2 L. Continue IV steroids, Xopenex, and azithromycin. Respiratory therapy consult; incentive spirometer to bedside. He is admitted to observation. Will change to full admission. Anticipate 2-3 day hospital stay. He has a DNR order in place. Will request case management consultation as I anticipate he will have needs at discharge. Hypoxia (R09.02) Story: Nocturnal hypoxia by nocturnal oximetry in 03/2017. Impression: He uses oxygen 2 L at night. Acute gout of left foot, unspecified cause (M10.9) Impression: His gout will be treated with IV steroids. Chronic atrial fibrillation (I48.2) Impression: Currently, his atrial fibrillation is rate controlled. He has not tolerated beta blockers in the past secondary to bradycardia. He is not a candidate for anticoagulation secondary to high risk of bleeding. He has recently seen Dr. Venegas and has been stable. Urinary retention (R33.9) Story: Tompkins catheter with leg bag remains in place. Impression: He now has a chronic indwelling Tompkins catheter secondary to renal mass. Chronic congestive heart failure, unspecified congestive heart failure type ( I50.9) Impression: He has preserved left ventricular function with some diastolic heart failure. His BNP is elevated as compared to prior values. His chest x- rays clear. He has some chronic bilateral lower extremity edema. Continue his daily dose of Lasix. Cardiology consult on Monday. Renal mass, right (N28.89) Story: Probably Renal Cell Carcinoma Impression: Probable renal cell carcinoma. No treatment at this time. Chronic kidney disease, stage 3 (N18.3) Impression: His creatinine is overall at his baseline. Benign essential HTN (I10) Impression: His blood pressures are stable. Disposition: DNR. Full admission. Anticipate at least 2-3 day hospital stay. He may need swing bed stay. CC: Dr. Missy Torres. LD
--- NOTE | 2017-04-27 08:31 | PROGRESS NOTE: IM APSO ---
Assessment and Plan - Date of Encounter Date of Encounter: 04/27/17 (1) COPD exacerbation Status: Acute Assessment and plan: retrocardiac pna, h/o cdiff, will try to attenuate duration of abx and narrow spectrum some. steroids/nebs/oxygen (uses at home). Current Visit: Yes (2) Pneumonia Status: Acute Current Visit: Yes (3) Gout flare Status: Acute Assessment and plan: improved on steroids, will continue and may need to consider allopurinol/ colchicine Current Visit: Yes (4) Chronic a-fib Status: Acute Assessment and plan: rate controlled without meds and not on AC secondary to risk Current Visit: Yes (5) Diastolic CHF Status: Acute Assessment and plan: compensated Current Visit: Yes (6) Anemia Status: Acute Assessment and plan: multifactorial, may be iron defc largely but likely chronic inflam dz too Current Visit: Yes - Time Spent With Patient Total time spent with greater than 50% in coordination of care (as documented) at patient's floor/unit and/or counseling patient: Greater than 35 minutes IM: PN Subjective General: good appetite, no fatigue, no confusion, no fever, no chills Cardiovascular: no chest pain, no chest pressure, no palpitations Respiratory: cough, sputum, wheeze, SOB Gastrointestinal: no abdominal pain, no bloating, no nausea, no vomiting, no diarrhea Musculoskeletal: pain Integumentary: rashes (87yo male, admitted yesterday for exac COPD/PNA and gout flare, notes cough/congestion/dyspnea for several days, used nebs 4x/day and then swelling/redness/pain in left great toe, seen in ER and Dr. Paul recommended admit nocte with plan for DC today. Patient with improved though persistent cough/wheeze/dyspnea, gout markedly improved with steroids nocte. Lives alone in [facility] with plan to move in with daughter who is having walk in shower and lift installed.) IM: PN Objective Exam - I&O/Vital Signs I&O: Intake & Output 04/26/17 04/27/17 04/27/17 21:59 05:59 13:59 Intake Total 240 Output Total 300 Balance -60 Intake: Oral 240 Output: Urine 300 Other: Urine Appearance Clear Urine Color Yellow Uretheral (Tompkins) Yellow Voiding Method Indwelling Catheter Vital Signs: Last Vital Signs Temp 36.4 C L 04/27/17 05:59 Pulse 89 04/27/17 05:59 Resp 22 04/27/17 05:59 BP 146/69 04/27/17 05:59 Pulse Ox 94 04/27/17 05:59 Oxygen Flow Rate 2 Oxygen Delivery Method Nasal Cannula - Constitutional General appearance: Present: obese - Head Head exam: Present: atraumatic - Eye Eye exam: Present: normal appearance - ENT ENT exam: Present: mucous membranes moist - Respiratory Respiratory exam: Present: accessory muscle use, wheezes (exp wheezing noted and prolonged exp phase) - Cardiovascular Cardiovascular exam: Present: RRR - GI/Abdominal GI/Abdominal exam: Present: normal bowel sounds, soft. Absent: tenderness - Extremities Exam Extremities exam: Present: joint swelling, tenderness (left first mtp though"if you had done that yesterday I'd of kicked you" during exam suggests marked improvedment (he is a kind man just used phrase for explanation of improvement)) - Lab Labs: Laboratory Last Values WBC 6.6 X 10^3uL (3.9-10.7) 04/27/17 05:15 RBC 3.31 X 10^6uL (4.20-6.10) L 04/27/17 05:15 Hgb 9.7 g/dL (14.0-18.0) L 04/27/17 05:15 Hct 29.8 % (42.0-54.0) L 04/27/17 05:15 MCV 90.2 fL (80.0-100.0) 04/27/17 05:15 MCH 29.3 pg (29.0-35.0) 04/27/17 05:15 MCHC 32.5 g/dL (32.0-36.0) 04/27/17 05:15 RDW 13.3 % (11.5-14.5) 04/27/17 05:15 Plt Count 188 X 10^3uL (130-440) 04/27/17 05:15 MPV 10.4 fL (7.4-10.4) 04/27/17 05:15 Neutrophils % 85.0 % (54.0-75.0) H 04/27/17 05:15 Lymphocytes % 12.3 % (20.0-40.0) L 04/27/17 05:15 Eosinophils % 0.1 % (0.0-6.0) 04/27/17 05:15 Basophils % 0.3 % (0.0-2.0) 04/27/17 05:15 Neutrophils # 5.6 X 10^3uL (2.6-6.7) 04/27/17 05:15 Lymphocytes # 0.8 X 10^3uL (0.8-3.8) 04/27/17 05:15 Monocytes 2.3 % (2.0-10.0) 04/27/17 05:15 Monocytes # 0.2 X 10^3uL (0.2-1.0) 04/27/17 05:15 Eosinophils # 0.0 X 10^3uL (0.0-0.4) 04/27/17 05:15 Basophils # 0.0 X 10^3uL (0.0-0.1) 04/27/17 05:15 Sodium 140 mmol/L (137-145) 04/27/17 05:15 Potassium 3.5 mmol/L (3.5-5.1) 04/27/17 05:15 Chloride 105 mmol/L (98-107) 04/27/17 05:15 Carbon Dioxide 28 mmol/L (22-30) 04/27/17 05:15 BUN 43 mg/dL (9-20) H 04/27/17 05:15 Creatinine 1.4 mg/dL (0.7-1.3) H 04/27/17 05:15 GFR Calculation Not Reportable 04/27/17 05:15 Glucose 237 mg/dL (70-100) H 04/27/17 05:15 Calcium 8.8 mg/dL (8.4-10.2) 04/27/17 05:15 Magnesium 1.8 mg/dL (1.6-2.3) 04/26/17 13:20 Total Bilirubin 0.9 mg/dL (0.2-1.3) 04/26/17 13:20 Direct Bilirubin 0.4 mg/dL (0.0-0.4) 04/26/17 13:20 AST 26 U/L (17-59) 04/26/17 13:20 ALT 36 U/L (21-72) 04/26/17 13:20 Alkaline Phosphatase 79 U/L (38-126) 04/26/17 13:20 Troponin I 0.047 ng/mL (0.00-0.034) H 04/26/17 17:05 NT-Pro-B Natriuret Pep 36761 pg/mL (<450) H 04/27/17 05:15 Total Protein 7.0 g/dL (6.3-8.2) 04/26/17 13:20 Albumin 3.9 g/dL (3.5-5.0) 04/26/17 13:20 Quality Questions - VTE Prophylaxis Assessment VTE Present on Admission?: No Patient at risk for venous thromboembolism?: Yes VTE Risk Level: Low Risk Pharmaceutical VTE prophylaxis contraindication reason: N/A- VTE prophylaxsis ordered Mechanical VTE prophylaxis contraindication reason: N/A- VTE prophylaxsis ordered (2) Pneumonia Qualifiers: Laterality: left (3) Gout flare Qualifiers: Encounter type: initial encounter (5) Diastolic CHF Qualifiers: Congestive heart failure chronicity: chronic Qualified Code(s): I50.32 - Chronic diastolic (congestive) heart failure
[2017-04-27 08:47] LABS: IRON 15 ug/dL (49-181)
[2017-04-27 08:54] LABS: TOTAL IRON BINDING CAPACITY 457 ug/mL (250-400); TRANSFERRIN 307 mg/dL (206-381); TRANSFERRIN SATURATION 3 % (14-50)
[2017-04-27] MEDS ORDERED: predniSONE 10 MG TABLET PO SCH (09:00)
[2017-04-27] MEDS ORDERED: FERROUS SULFATE 325 MG TABLET PO SCH (09:00)
[2017-04-27] MEDS ORDERED: DOCUSATE SODIUM 100 MG CAPSULE PO SCH (09:00)
[2017-04-27] MEDS: TAMSULOSIN HCL 0.4 MG CAPSULE PO SCH (09:06)
[2017-04-27] MEDS: PANTOPRAZOLE 40 MG TABLET PO SCH ×2 (09:06→21:04)
[2017-04-27] MEDS: DOXYCYCLINE 100 MG CAPSULE PO SCH ×2 (09:06→21:04)
[2017-04-27] MEDS: DOCUSATE SODIUM 100 MG CAPSULE PO SCH (09:07)
[2017-04-27] MEDS: MULTIVITAMINS THERAPEUTIC 1 TABLET PO SCH (09:07)
[2017-04-27] MEDS: FERROUS SULFATE 325 MG TABLET PO SCH (09:07)
[2017-04-27] MEDS: OCUVITE VIT C/E/ZINC/CU 1 CAP CAPSULE PO SCH (09:07)
[2017-04-27] MEDS: PROBIOTIC 1 CAP CAPSULE PO SCH (09:07)
[2017-04-27] MEDS: FUROSEMIDE 20 MG TABLET PO SCH (09:07)
[2017-04-27] MEDS: PRAVASTATIN SODIUM 40 MG TABLET PO SCH (09:11)
[2017-04-27 09:24] LABS: FERRITIN 24 ng/mL (18-464)
[2017-04-27] MEDS: LEVALBUTEROL 1.25 MG/3 ML VIAL.NEB INHALATION SCH ×4 (09:55→21:06)
[2017-04-27] MEDS ORDERED: IRON SUCROSE COMPLEX 200 MG in NORMAL SALINE 100 ML IV SCH (10:00)
[2017-04-27] MEDS: predniSONE 20 MG TABLET PO SCH (10:51)
[2017-04-28 06:15] VITALS: BP 173/84; PULSE 78; RESP 24; TEMP 97
--- NOTE | 2017-04-28 08:28 | PROGRESS NOTE: IM APSO ---
Assessment and Plan - Date of Encounter Date of Encounter: 04/28/17 (1) COPD exacerbation Status: Acute Assessment and plan: retrocardiac pna, h/o cdiff, will try to attenuate duration of abx and narrow spectrum some. steroids/nebs/oxygen (uses at home). Improved and able t discharge with close outpatinet f/u, Has appt with Dr. Torres 05/04 at 1400 Current Visit: Yes (2) Pneumonia Status: Acute Current Visit: Yes (3) Gout flare Status: Acute Assessment and plan: improved on steroids, will continue and may need to consider allopurinol/ colchicine Current Visit: Yes (4) Chronic a-fib Status: Acute Current Visit: Yes (5) Diastolic CHF Status: Acute Assessment and plan: compensated Current Visit: Yes (6) Anemia Status: Acute Assessment and plan: multifactorial, may be iron defc largely but likely chronic inflam dz too Current Visit: Yes - Time Spent With Patient Total time spent with greater than 50% in coordination of care (as documented) at patient's floor/unit and/or counseling patient: 25 - 35 minutes IM: PN Subjective General: good appetite, no fatigue, no confusion, no fever, no chills Cardiovascular: no chest pain, no chest pressure, no palpitations Respiratory: cough, sputum, wheeze, SOB (overall cough/sputum/wheeze better, didn't sleep well but largely couldn't shut mind down, no PND/orthopnea. Usual take Tylenol PM at home) Gastrointestinal: no abdominal pain, no bloating, no nausea, no vomiting, no diarrhea Musculoskeletal: pain Integumentary: rashes (87yo male, admitted yesterday for exac COPD/PNA and gout flare, notes cough/congestion/dyspnea for several days, used nebs 4x/day and then swelling/redness/pain in left great toe, seen in ER and Dr. Paul recommended admit nocte with plan for DC today. Patient with improved though persistent cough/wheeze/dyspnea, gout markedly improved with steroids nocte. Lives alone in [facility] with plan to move in with daughter who is having walk in shower and lift installed.) IM: PN Objective Exam - I&O/Vital Signs I&O: Intake & Output 04/27/17 04/28/17 04/28/17 21:59 05:59 13:59 Intake Total 1360 650 Output Total 640 250 Balance 720 400 Weight 80.5 kg Intake: Oral 1360 650 Output: Urine 640 250 Other: Urine Appearance Clear Clear Urine Color Straw Yellow Uretheral (Tompkins) Yellow Yellow Voiding Method Indwelling Catheter Indwelling Catheter Vital Signs: Last Vital Signs Temp 36.1 C L 04/28/17 06:14 Pulse 78 04/28/17 06:14 Resp 24 04/28/17 06:14 BP 173/84 04/28/17 06:14 Pulse Ox 97 04/28/17 06:14 Oxygen Flow Rate 1.5 Oxygen Delivery Method Nasal Cannula - Constitutional General appearance: Present: obese - Head Head exam: Present: atraumatic - Eye Eye exam: Present: normal appearance - ENT ENT exam: Present: mucous membranes moist - Respiratory Respiratory exam: Present: accessory muscle use, wheezes (exp wheezing noted and prolonged exp phase) - Cardiovascular Cardiovascular exam: Present: RRR - GI/Abdominal GI/Abdominal exam: Present: normal bowel sounds, soft. Absent: tenderness - Extremities Exam Extremities exam: Present: joint swelling, tenderness (left first mtp though"if you had done that yesterday I'd of kicked you" during exam suggests marked improvedment (he is a kind man just used phrase for explanation of improvement)) - Lab Labs: Laboratory Last Values WBC 6.6 X 10^3uL (3.9-10.7) 04/27/17 05:15 RBC 3.31 X 10^6uL (4.20-6.10) L 04/27/17 05:15 Hgb 9.7 g/dL (14.0-18.0) L 04/27/17 05:15 Hct 29.8 % (42.0-54.0) L 04/27/17 05:15 MCV 90.2 fL (80.0-100.0) 04/27/17 05:15 MCH 29.3 pg (29.0-35.0) 04/27/17 05:15 MCHC 32.5 g/dL (32.0-36.0) 04/27/17 05:15 RDW 13.3 % (11.5-14.5) 04/27/17 05:15 Plt Count 188 X 10^3uL (130-440) 04/27/17 05:15 MPV 10.4 fL (7.4-10.4) 04/27/17 05:15 Neutrophils % 85.0 % (54.0-75.0) H 04/27/17 05:15 Lymphocytes % 12.3 % (20.0-40.0) L 04/27/17 05:15 Eosinophils % 0.1 % (0.0-6.0) 04/27/17 05:15 Basophils % 0.3 % (0.0-2.0) 04/27/17 05:15 Neutrophils # 5.6 X 10^3uL (2.6-6.7) 04/27/17 05:15 Lymphocytes # 0.8 X 10^3uL (0.8-3.8) 04/27/17 05:15 Monocytes 2.3 % (2.0-10.0) 04/27/17 05:15 Monocytes # 0.2 X 10^3uL (0.2-1.0) 04/27/17 05:15 Eosinophils # 0.0 X 10^3uL (0.0-0.4) 04/27/17 05:15 Basophils # 0.0 X 10^3uL (0.0-0.1) 04/27/17 05:15 Sodium 140 mmol/L (137-145) 04/27/17 05:15 Potassium 3.5 mmol/L (3.5-5.1) 04/27/17 05:15 Chloride 105 mmol/L (98-107) 04/27/17 05:15 Carbon Dioxide 28 mmol/L (22-30) 04/27/17 05:15 BUN 43 mg/dL (9-20) H 04/27/17 05:15 Creatinine 1.4 mg/dL (0.7-1.3) H 04/27/17 05:15 GFR Calculation Not Reportable 04/27/17 05:15 Glucose 237 mg/dL (70-100) H 04/27/17 05:15 Calcium 8.8 mg/dL (8.4-10.2) 04/27/17 05:15 Magnesium 1.8 mg/dL (1.6-2.3) 04/26/17 13:20 Iron 15 ug/dL (49-181) L 04/27/17 05:15 TIBC 457 ug/mL (250-400) H 04/27/17 05:15 Transferrin 307 mg/dL (206-381) 04/27/17 05:15 Transferrin % Sat 3 % (14-50) L 04/27/17 05:15 Ferritin 24 ng/mL (18-464) 04/27/17 05:15 Total Bilirubin 0.9 mg/dL (0.2-1.3) 04/26/17 13:20 Direct Bilirubin 0.4 mg/dL (0.0-0.4) 04/26/17 13:20 AST 26 U/L (17-59) 04/26/17 13:20 ALT 36 U/L (21-72) 04/26/17 13:20 Alkaline Phosphatase 79 U/L (38-126) 04/26/17 13:20 Troponin I 0.047 ng/mL (0.00-0.034) H 04/26/17 17:05 NT-Pro-B Natriuret Pep 63612 pg/mL (<450) H 04/27/17 05:15 Total Protein 7.0 g/dL (6.3-8.2) 04/26/17 13:20 Albumin 3.9 g/dL (3.5-5.0) 04/26/17 13:20 (2) Pneumonia Qualifiers: Laterality: left (3) Gout flare Qualifiers: Encounter type: initial encounter (5) Diastolic CHF Qualifiers: Congestive heart failure chronicity: chronic Qualified Code(s): I50.32 - Chronic diastolic (congestive) heart failure
[2017-04-28] MEDS: predniSONE 20 MG TABLET PO SCH (08:31)
[2017-04-28] MEDS: DOCUSATE SODIUM 100 MG CAPSULE PO SCH (08:31)
[2017-04-28] MEDS: PRAVASTATIN SODIUM 40 MG TABLET PO SCH (08:32)
[2017-04-28] MEDS: PROBIOTIC 1 CAP CAPSULE PO SCH (08:32)
[2017-04-28] MEDS: FUROSEMIDE 20 MG TABLET PO SCH (08:33)
[2017-04-28] MEDS: MULTIVITAMINS THERAPEUTIC 1 TABLET PO SCH (08:33)
[2017-04-28] MEDS: OCUVITE VIT C/E/ZINC/CU 1 CAP CAPSULE PO SCH (08:34)
[2017-04-28] MEDS: DOXYCYCLINE 100 MG CAPSULE PO SCH (08:34)
[2017-04-28] MEDS: FERROUS SULFATE 325 MG TABLET PO SCH (08:34)
[2017-04-28] MEDS: TAMSULOSIN HCL 0.4 MG CAPSULE PO SCH (08:34)
[2017-04-28] MEDS: PANTOPRAZOLE 40 MG TABLET PO SCH (08:34)
--- NOTE | 2017-04-28 08:34 | DC SUMMARY: IM Note ---
Discharge Summary: IM/Peds Provider: Date of Admission: 04/26/17 Admitting Provider: ANTONIA GARCIA MD Attending Provider: MARLO DALLAS Discharging Provider: RANDY KEN Primary Care Provider: Discharge Date: 04/28/17 Consults: 04/26/17 20:51 Cardiology Consult [CONS] Routine Reason: CHF; A Fib. - Diagnosis (1) COPD exacerbation Status: Acute (2) Pneumonia Status: Acute Qualifiers: Laterality: left (3) Gout flare Status: Acute Qualifiers: Encounter type: initial encounter (4) Chronic a-fib Status: Acute (5) Diastolic CHF Status: Acute Qualifiers: Congestive heart failure chronicity: chronic Qualified Code(s): I50.32 - Chronic diastolic (congestive) heart failure (6) Anemia Status: Acute - Time Spent with Patient Total time spent providing and/or coordinating discharge services: Discharge - Patient/Caregiver Discharge Instructions Activity Level: as tolerated Diet: low fat and limit concentrated sweets while on steroids (increases sugars) Follow up: MARLO DALLAS DO [Primary Care Provider] - 05/04/17 2:00 pm Overall discharge status: patient is progressing back to baseline Home Medications: Doxycycline [Doxycycline Hyclate*] 100 mg PO BID #12 cap Levalbuterol [Xopenex*] 1.25 mg INHALATION QID #50 vial predniSONE [Deltasone*] 40 mg PO DAILY #10 tab Disposition: HOME, SELF-CARE Discharge Summary Data - Medication History Medication History: Home Medications Acetaminophen [Tylenol] 650 mg PO DAILY PRN 04/26/17 Acetaminophen/Diphenhydramine [Tylenol Pm Ex-Strength Caplet] 2 tab PO BEDTIME ( DAILY) 04/26/17 Albuterol Sulfate [Proair Hfa] 2 puff INHALATION Q4H PRN 04/26/17 Docusate Sodium [Colace*] 250 mg PO DAILY 04/26/17 Ferrous Sulfate [Ferrous Sulfate*] 1 tab PO DAILY 04/26/17 Fluticasone Hfa 44 Mcg [Flovent Hfa 44Mcg*] 1 puff INHALATION BID 04/26/17 Furosemide [Lasix*] 20 mg PO DAILY 04/26/17 Multivitamins,Therapeutic [Thera Multivitamin*] 1 tab PO DAILY 04/26/17 Ocuvite Vit C/E/Zinc/Cu [Ocuvite Lutein Capsule*] 1 cap PO DAILY 04/26/17 Pantoprazole [Pantoprazole Sodium*] 20 mg PO BID 04/26/17 Pravastatin Sodium [Pravachol] 10 mg PO DAILY 04/26/17 Probiotic [Anne-Q Capsule] 1 cap PO DAILY 04/26/17 Tamsulosin HCl [Flomax*] 0.4 mg PO DAILY 04/26/17 traMADol HCL [Ultram*] 50 mg PO TID PRN 04/26/17 traZODone HCL [Trazodone HCl*] 25 - 50 mg PO HS PRN 04/26/17 Inpatient Medications 04/26/17 22:31 Acetaminophen [Tylenol] 650 mg PO DAILY PRN traMADol HCL [Ultram] 50 mg PO TID PRN traZODone HCL [Desyrel] 25 mg PO HS PRN 04/27/17 09:00 Docusate Sodium [Colace] 200 mg PO DAILY Doxycycline [Doxy] 100 mg PO BID Ferrous Sulfate 325 mg PO DAILY Furosemide [Lasix] 20 mg PO DAILY Multivitamins,Therapeutic [Thera] 1 tab PO DAILY Ocuvite Vit C/E/Zinc/Cu [Ocuvite Lutein] 1 cap PO DAILY Pantoprazole [Protonix] 20 mg PO BID Pravastatin Sodium [Pravachol] 10 mg PO DAILY Probiotic [Anne-Q Capsule] 1 cap PO DAILY Tamsulosin HCl [Flomax] 0.4 mg PO DAILY predniSONE [Deltasone] 40 mg PO DAILY 04/27/17 21:00 Acetaminophen/Diphenhydramine [Tylenol Pm Ex-Strength Caplet] 2 tab PO BEDTIME (DAILY) Procedures and tests throughout hospitalization: Completed Lab Orders 04/27/17 05:15 BNP,NT-PRO [CHEM] Routine FERRITIN [CHEM] Routine IRON PANEL [CHEM] Routine Pending Orders 04/26/17 20:51 Incentive Spirometry Q1H Teach: Incentive Spirometry . Cardiology Consult [CONS] Routine 04/26/17 22:31 Acetaminophen [Tylenol] 650 mg PO DAILY PRN traMADol HCL [Ultram] 50 mg PO TID PRN traZODone HCL [Desyrel] 25 mg PO HS PRN 04/27/17 09:00 Docusate Sodium [Colace] 200 mg PO DAILY Doxycycline [Doxy] 100 mg PO BID Ferrous Sulfate 325 mg PO DAILY Furosemide [Lasix] 20 mg PO DAILY Multivitamins,Therapeutic [Thera] 1 tab PO DAILY Ocuvite Vit C/E/Zinc/Cu [Ocuvite Lutein] 1 cap PO DAILY Pantoprazole [Protonix] 20 mg PO BID Pravastatin Sodium [Pravachol] 10 mg PO DAILY Probiotic [Anne-Q Capsule] 1 cap PO DAILY Tamsulosin HCl [Flomax] 0.4 mg PO DAILY predniSONE [Deltasone] 40 mg PO DAILY 04/27/17 21:00 Acetaminophen/Diphenhydramine [Tylenol Pm Ex-Strength Caplet] 2 tab PO BEDTIME (DAILY) Labs on day of discharge: Labs from last 24 hours 04/27/17 05:15 Iron 15 L TIBC 457 H Transferrin 307 Transferrin % Sat 3 L Ferritin 24 - Impressions 87 yo gentleman admitted with pneumonia/exqc copd and gout, steroid/nebs/O2 an Abx markdely improved. Plans to move in with daughter who is arranging for home stair lift and walk in shower, for now has own condo but family cares for him throughout day IM: Discharge Physical Exam - I&O/Vital Signs I&O: Intake & Output 04/27/17 04/28/17 04/28/17 21:59 05:59 13:59 Intake Total 1360 650 Output Total 640 250 Balance 720 400 Weight 80.5 kg Intake: Oral 1360 650 Output: Urine 640 250 Other: Urine Appearance Clear Clear Urine Color Straw Yellow Uretheral (Tompkins) Yellow Yellow Voiding Method Indwelling Catheter Indwelling Catheter Vital Signs: Last Vital Signs Temp 36.1 C L 04/28/17 06:14 Pulse 78 04/28/17 06:14 Resp 24 04/28/17 06:14 BP 173/84 04/28/17 06:14 Pulse Ox 97 04/28/17 06:14 Oxygen Flow Rate 1.5 Oxygen Delivery Method Nasal Cannula - Constitutional General appearance: Present: obese - Head Head exam: Present: atraumatic - Eye Eye exam: Present: normal appearance - ENT ENT exam: Present: mucous membranes moist - Respiratory Respiratory exam: Present: accessory muscle use, wheezes (exp wheezing noted and prolonged exp phase) - Cardiovascular Cardiovascular exam: Present: RRR - GI/Abdominal GI/Abdominal exam: Present: normal bowel sounds, soft. Absent: tenderness - Extremities Exam Extremities exam: Present: joint swelling, tenderness (left first mtp though"if you had done that yesterday I'd of kicked you" during exam suggests marked improvedment (he is a kind man just used phrase for explanation of improvement))
[2017-04-28] MEDS: LEVALBUTEROL 1.25 MG/3 ML VIAL.NEB INHALATION SCH (08:58)
[2017-04-28 09:05] VITALS: O2SAT 90
[2017-04-28] MEDS ORDERED: INHALER, ASSIST DEVICES 1 PKT EACH ONE (09:24)
== END 2017-04-28 08:35 | disposition home or self-care (01) | DRG 190 ==
LOC: ER 13:04 → IN 15:34 → OBSVTOIN 20:50
PROVIDERS: ADMIT Family Medicine; ATTEND Family Medicine
DX: J44.1 Chronic obstructive pulmonary disease with (acute) exacerbation (principal); J44.0 Chronic obstructive pulmonary disease with (acute) lower respiratory infection; J15.9 Unspecified bacterial pneumonia; Z87.891 Personal history of nicotine dependence; G47.34 Idiopathic sleep related nonobstructive alveolar hypoventilation; Z99.81 Dependence on supplemental oxygen; I48.2 Chronic atrial fibrillation; M10.9 Gout, unspecified; R33.8 Other retention of urine; N40.1 Benign prostatic hyperplasia with lower urinary tract symptoms; I12.9 Hypertensive chronic kidney disease with stage 1 through stage 4 chronic kidney disease, or unspecified chronic kidney disease; N18.3 Chronic kidney disease, stage 3 (moderate); I50.32 Chronic diastolic (congestive) heart failure; D64.9 Anemia, unspecified; Z79.899 Other long term (current) drug therapy
CPT/HCPCS: 36415; 71010; 80048; 80076; 82728; 83540; 83735; 83880; 84466; 84484; 85025; 93005; 93041; 94640; 94664; 94667; 96374; 99285; E0555; J0456; J1756; J2930; J7050; J7620